=== PATIENT | male | born 2000 | race Two or more races ===

== ENCOUNTER 2019-09-11 04:50 | Emergency (ER) | payer SELFPAY ==
--- NOTE | 2019-09-11 05:39 | EDM.PDOC ---
ED HPI GENERAL MEDICAL PROBLEM - General Chief Complaint: Gastrointestinal Problem Stated Complaint: [facility] Time Seen by Provider: 09/11/19 05:37 - History of Present Illness INITIAL COMMENTS - FREE TEXT/NARRATIVE: 18-year-old male brought in by EMS with a chief complaint of chest pain. Patient has had chest pain on and off for the last several weeks. He developed significant nausea since midday yesterday. He has vomited many times since midnight tonight. Has not vomited prior to this. He did vomit some red material at one time. Patient was brought in by EMS and did not vomit during that time and he has not vomited here in the emergency room. Epigastric Pain Score (Numeric/FACES): 5 - Related Data Allergies Allergy/AdvReac Type Severity Reaction Status Date / Time No Known Allergies Allergy Verified 09/11/19 04:55 Home Meds: Home Meds Lansoprazole [Prevacid] 30 mg PO ASDIRECTED #30 tab.rap. 09/11/19 [Rx] Sucralfate [Carafate] 1 gm PO QIDACANDBED #24 cup 09/11/19 [Rx] Past Medical History - Past Health History Medical/Surgical History: Denies Medical/Surgical History Social & Family History - Tobacco Use Smoking Status *Q: Unknown Ever Smoked ED ROS GENERAL - Review of Systems Review Of Systems: See Below Constitutional: Reports: Chills. Denies: Fever HEENT: Reports: No Symptoms Respiratory: Reports: Other (Chest pains at time) Cardiovascular: Reports: Chest Pain (Sharp at times) Endocrine: Reports: No Symptoms GI/Abdominal: Reports: Abdominal Pain, Nausea, Vomiting. Denies: Black Stool, Bloody Stool : Reports: No Symptoms Skin: Reports: No Symptoms ED EXAM, GI/ABD - Physical Exam Exam: See Below Exam Limited By: No Limitations General Appearance: Alert, Mild Distress (From the discomfort) Head: Atraumatic, Normocephalic Neck: Normal Inspection, Supple, Non-Tender, Full Range of Motion Respiratory/Chest: No Respiratory Distress, Lungs Clear, Normal Breath Sounds Cardiovascular: Regular Rate, Rhythm, No Edema, No Murmur GI/Abdominal Exam: Normal Bowel Sounds, Soft, Other (He has marked epigastric discomfort with palpation this seems to trigger the pain that brought him in no rigidity rebound or guarding noted) Back Exam: Normal Inspection. No: CVA Tenderness (L), CVA Tenderness (R) Course - Vital Signs Last Recorded V/S: Last Vital Signs Temp 36.5 C 09/11/19 04:52 Pulse 90 09/11/19 04:52 Resp 16 09/11/19 04:52 BP 112/70 09/11/19 04:52 Pulse Ox 98 09/11/19 04:52 Orthostatic Blood Pressure [ 110/75 Standing] - Orders/Labs/Meds Orders: Active Orders 24 hr Category Date Time Status EKG Documentation Completion [RC] STAT Care 09/11/19 05:50 Active Labs: Laboratory Tests 09/11/19 09/11/19 Range/Units 06:00 06:00 WBC 19.20 H (4.23-9.07) K/mm3 RBC 5.82 (4.63-6.08) M/mm3 Hgb 16.6 (13.7-17.5) gm/dl Hct 48.8 (40.1-51.0) % MCV 83.8 (79.0-92.2) fl MCH 28.5 (25.7-32.2) pg MCHC 34.0 (32.2-35.5) g/dl RDW Std Deviation 38.6 (35.1-43.9) fL Plt Count 285 (163-337) K/mm3 MPV 9.6 (9.4-12.3) fl Neutrophils % (Manual) 87 H (40-60) % Band Neutrophils % 3 (0-10) % Lymphocytes % (Manual) 5 L (20-40) % Atypical Lymphs % 0 % Monocytes % (Manual) 4 (2-10) % Eosinophils % (Manual) 1 (0.8-7.0) % Basophils % (Manual) 0 L (0.2-1.2) Platelet Estimate Adequate Anisocytosis 1+ slight RBC Morph Comment Not Reportable Sodium 139 (136-145) mEq/L Potassium 4.0 (3.5-5.1) mEq/L Chloride 100 (98-107) mEq/L Carbon Dioxide 26 (21-32) mEq/L Anion Gap 17.0 H (5-15) BUN 22 H (7-18) mg/dL Creatinine 0.9 (0.7-1.3) mg/dL Est Cr Clr Drug Dosing 101.64 mL/min Estimated GFR (MDRD) > 60 (>60) mL/min BUN/Creatinine Ratio 24.4 H (14-18) Glucose 136 H (74-106) mg/dL Calcium 9.1 (8.5-10.1) mg/dL Total Bilirubin 0.6 (0.2-1.0) mg/dL AST 21 (15-37) U/L ALT 33 (16-63) U/L Alkaline Phosphatase 99 (46-116) U/L Total Protein 8.3 H (6.4-8.2) g/dl Albumin 4.3 (3.4-5.0) g/dl Globulin 4.0 gm/dL Albumin/Globulin Ratio 1.1 (1-2) Lipase 69 L (73-393) U/L Meds: Medications Discontinued Medications Generic Name Dose Route Start Last Admin Trade Name Freq PRN Reason Stop Dose Admin Al Hydroxide/Mg Hydroxide 30 0 ml 09/11/19 05:45 09/11/19 05:58 ml/ Lidocaine HCl 15 ml PO 09/11/19 05:46 45 ml ONETIME ONE Administration Lactated Ringer's 1,000 mls @ 999 mls/hr 09/11/19 05:44 09/11/19 05:57 Ringers, Lactated IV 09/11/19 06:44 999 mls/hr .BOLUS ONE Administration Ondansetron HCl 4 mg 09/11/19 05:44 09/11/19 05:57 Zofran IVPUSH 09/11/19 05:45 4 mg ONETIME ONE Administration - Re-Assessments/Exams Free Text/Narrative Re-Assessment/Exam: 09/11/19 07:51 Patient received parenteral IV fluids shortly after arrival after his nausea was controlled he was given a GI cocktail and feels much better at this time. Shortly after taking the GI cocktail he noticed significant improvement Departure - Departure Time of Disposition: 07:51 Disposition: Home, Self-Care 01 Clinical Impression: GERD (gastroesophageal reflux disease) - Discharge Information Prescriptions: Lansoprazole [Prevacid] 30 mg PO ASDIRECTED #30 tab.rap Sucralfate [Carafate] 1 gm PO QIDACANDBED #24 cup Referrals: PCP,None [Primary Care Provider] - Forms: ED Department Discharge Additional Instructions: Return to the emergency room with any questions problems or worsening symptoms. You have been started on 2 medications the first 1 is Carafate you will take this for 6 days take this just before your morning midday and evening meals and at bedtime. You have been started on Prevacid take this daily 60 minutes before your morning meal. Follow-up in the [facility] or here at the hospital clinic early this next week for recheck. Sepsis Event Note - Evaluation Sepsis Screening Result: No Definite Risk - Focused Exam Vital Signs: Vital Signs Temp Pulse Resp BP Pulse Ox 09/11/19 04:52 36.5 C 90 16 112/70 98 Date Exam was Performed: 09/11/19 Time Exam was Performed: 07:50 - My Orders Last 24 Hours: My Active Orders 09/11/19 05:50 EKG Documentation Completion [RC] STAT - Assessment/Plan Last 24 Hours: My Active Orders 09/11/19 05:50 EKG Documentation Completion [RC] STAT
[2019-09-11] MEDS ORDERED: Lactated Ringers 1,000 ML IV ONE (05:44)
[2019-09-11] MEDS ORDERED: Ondansetron 4 MG/2 ML SDV IVPUSH ONE (05:44)
[2019-09-11] MEDS ORDERED: Alum Hydrox/Mag Hydrox/Simeth 30 ML, Lidocaine 2% 15 ML PO ONE ×2 (05:45)
--- NOTE | 2019-09-11 07:16 | CR ---
Chest: Two views of the chest were obtained. Comparison: No prior chest imaging. Heart size and mediastinum are normal. Lungs are clear. Bony structures are unremarkable. Impression: 1. Nothing acute is seen on two-view chest x-ray. Diagnostic code #1 This report was dictated in [place] Standard Time
[2019-09-11] MEDS ORDERED: Pantoprazole 40 MG Tab.CR PO ONE (07:52)
[2019-09-11] MEDS ORDERED: Sucralfate 1 GM Tab PO ONE (07:52)
== END 2019-09-11 08:18 | disposition home or self-care (01) ==
LOC: JD.ED 04:50
DX: K21.9 Gastro-esophageal reflux disease without esophagitis (principal)
CPT/HCPCS: 36415; 71046; 80053; 83690; 85007; 85027; 93005; 96361; 96374; 99285; A9270; J2405; J7120; 99283

== ENCOUNTER 2019-11-27 22:46 | Emergency (ER) | payer SELFPAY ==
[2019-11-28] MEDS ORDERED: Orphenadrine 100 MG Tab.ER PO STA (00:59)
[2019-11-28] MEDS ORDERED: Ibuprofen 600 MG Tab PO ONE (00:59)
--- NOTE | 2019-11-28 01:03 | EDM.PDOC ---
ED HPI GENERAL MEDICAL PROBLEM - General Chief Complaint: Headache Stated Complaint: MIGRAINE Time Seen by Provider: 11/28/19 00:45 Source of Information: Reports: Patient, Significant Other (Girlfriend) History Limitations: Reports: No Limitations - History of Present Illness INITIAL COMMENTS - FREE TEXT/NARRATIVE: Mr. Coleman is a very pleasant 19-year-old man with chronic medical problems and no past surgical history, who now presents to the ED stating that he has been experiencing a headache felt primarily to the back of his head and neck, as well as behind his eyes, coming and going for the past 4 days. It is typically gone when he wakes up, but then develops a couple hours after he gets up. He also reports that he has felt lightheaded when upright for the past few days. He states that he had some nausea and emesis yesterday, 11/27/2019. He denies recent fever, chills, cough, dyspnea, chest pain, palpitations, constipation, diarrhea, abdominal pain, urinary symptoms, recent weight gain or weight loss, recent bloody bowel movements or black bowel movements, recent joint aches, or rashes. The patient states that he took 400 mg of ibuprofen 4 days ago, but nothing since. The patient states that he has a history of relatively frequent headaches since childhood. He states that he had x-rays taken, and that he was prescribed some "pills", however, he states that he has never undergone a neurologic evaluation , and, to his knowledge, he has never had a CT scan or MRI of his head. Here in the ED, the patient is found to be hemodynamically stable, afebrile, saturating 98% on room air. The patient does not have a PCP. He did not receive an influenza vaccine this season. He initially agreed to receive one here today, then changed his mind. Posterior Headache Pain Score (Numeric/FACES): 7 - Related Data Allergies Allergy/AdvReac Type Severity Reaction Status Date / Time No Known Allergies Allergy Verified 09/11/19 04:55 Home Meds: Home Meds Orphenadrine [Norflex] 1 tab PO Q12H PRN #14 tab.er 11/28/19 [Rx] Past Medical History Gastrointestinal History: Reports: GERD (untreated) Social & Family History - Tobacco Use Smoking Status *Q: Never Smoker - Caffeine Use Caffeine Use: Reports: Soda - Alcohol Use Alcohol Use History: Yes Alcohol Use Frequency: Socially - Recreational Drug Use Recreational Drug Use: No - Living Situation & Occupation Living situation: Reports: Single, with Family Occupation: Employed ([employer]) ED ROS GENERAL - Review of Systems Review Of Systems: Comprehensive ROS is negative, except as noted in HPI. Neurological: Reports: Headache - Physical Exam Exam: See Below Exam Limited By: No Limitations General Appearance: Alert, WD/WN, No Apparent Distress Eye Exam: Bilateral Eye: EOMI, Normal Inspection, PERRL Ears: Normal External Exam, Normal Canal, Hearing Grossly Normal, Normal TMs Nose: Normal Inspection, Normal Mucosa, No Blood Throat/Mouth: Normal Inspection, Normal Lips, Normal Teeth, Normal Gums, Normal Oropharynx, Normal Voice, No Airway Compromise Head Exam: Atraumatic, Normocephalic, Scalp Tenderness (posterior, primarily, with minimal tenderness across the top) Neck: Normal Inspection, Supple, Full Range of Motion, Tender Lateral ( reproducible, to palpation of the posterionr musculature). No: Lymphadenopathy (L), Lymphadenopathy (R) Respiratory/Chest: No Respiratory Distress, Lungs Clear, Normal Breath Sounds, No Accessory Muscle Use Cardiovascular: Normal Peripheral Pulses, Regular Rate, Rhythm, No Edema, No Gallop, No JVD, No Murmur, No Rub GI/Abdominal: Normal Bowel Sounds, Soft, Non-Tender, No Organomegaly, No Distention, No Abnormal Bruit, No Mass (Male) Exam: Deferred Rectal (Males) Exam: Deferred Neuro Exam (Abbreviated): Alert, Oriented, CN II-XII Intact, Normal Cognition, No Motor/Sensory Deficits Back Exam: Normal Inspection, Full Range of Motion, NT Extremities: Normal Inspection, Normal Range of Motion, No Pedal Edema, Normal Capillary Refill Psychiatric: Normal Affect Skin Exam: Warm, Dry, Intact, Normal Color, No Rash Course - Vital Signs Last Recorded V/S: Last Vital Signs Temp 36.9 C 11/28/19 01:38 Pulse 73 11/28/19 01:38 Resp 18 11/28/19 01:38 BP 110/57 L 11/28/19 01:38 Pulse Ox 100 11/28/19 01:38 Orthostatic Blood Pressure [ 106/71 Standing] Orthostatic Blood Pressure [ 106/58 Sitting] Orthostatic Blood Pressure [ 108/51 Supine] - Orders/Labs/Meds Orders: Active Orders 24 hr Category Date Time Status Influenza Vaccine Charge [RC] .DISCHARGE Care 11/28/19 00:59 Active Orthostatic Vital Signs [RC] STAT Care 11/28/19 00:59 Active Meds: Medications Discontinued Medications Generic Name Dose Route Start Last Admin Trade Name Freq PRN Reason Stop Dose Admin Ibuprofen 600 mg 11/28/19 00:59 11/28/19 01:11 Motrin PO 11/28/19 01:00 600 mg ONETIME ONE Administration Influenza Virus Vaccine 1 each 11/28/19 00:59 Pharmacy To Dose - Influenza Vaccine IM 11/28/19 01:00 ONETIME ONE Influenza Virus Vaccine 60 mcg 11/28/19 01:15 11/28/19 01:31 Fluzone Quad Syringe IM 11/28/19 01:16 Not Given .ONCE ONE Orphenadrine Citrate 100 mg 11/28/19 00:59 11/28/19 01:11 Norflex PO 11/28/19 01:00 100 mg ONETIME STA Administration - Re-Assessments/Exams Free Text/Narrative Re-Assessment/Exam: 11/28/19 01:00 The patient's history and physical examination are most consistent with a tension type headache, not a migraine. As such, I will treat him with Norflex and ibuprofen. Because the patient said that he has felt lightheaded when upright for the past few days, we will check orthostatics. 11/28/19 01:25 The patient is not orthostatic. I will discharge him home. Departure - Departure Time of Disposition: 01:25 Disposition: Home, Self-Care 01 Condition: Good Clinical Impression: Tension type headache - Discharge Information *PRESCRIPTION DRUG MONITORING PROGRAM REVIEWED*: Not Applicable *COPY OF PRESCRIPTION DRUG MONITORING REPORT IN PATIENT MELVIN: Not Applicable Prescriptions: Orphenadrine [Norflex] 1 tab PO Q12H PRN #14 tab.er PRN Reason: Muscle Spasm Instructions: Dehydration, Elderly, [id number] Referrals: PCP,None [Primary Care Provider] - Forms: ED Department Discharge Additional Instructions: You were seen in the emergency room for 4 days of a headache felt that the back of your head and neck, along with lightheadedness, nausea, and vomiting. Work-up in the ER included positional blood pressure checks, which returned normal. You are not dehydrated. Based on your history and physical exam, you are suffering from a tension-type headache, not a migraine. You have been started on the muscle relaxant Norflex, and a prescription for Norflex has been sent to the [facility] located in the [place] store. Take 1 tablet of Norflex every 12 hours, starting this afternoon, 11/28/2019, as prescribed. Norflex works well with ibuprofen. Take 3 tablets (600 mg) of [id number] ibuprofen every 8 hours, with food, as needed for discomfort. Make sure that you stay well-hydrated. Gatorade or Powerade are best. If any other problems, please do not hesitate to return to the ER. Sepsis Event Note - Evaluation Sepsis Screening Result: No Definite Risk - Focused Exam Date Exam was Performed: 11/28/19 Time Exam was Performed: 23:28 - My Orders Last 24 Hours: My Active Orders 11/28/19 00:59 Influenza Vaccine Charge [RC] .DISCHARGE Orthostatic Vital Signs [RC] STAT - Assessment/Plan Last 24 Hours: My Active Orders 11/28/19 00:59 Influenza Vaccine Charge [RC] .DISCHARGE Orthostatic Vital Signs [RC] STAT
[2019-11-28] MEDS ORDERED: FLU Vacc QS2019-20(6MOS+)/PF 60 MCG/0.5 ML SYRINGE IM ONE (01:15)
== END 2019-11-28 01:38 | disposition home or self-care (01) ==
LOC: JD.ED 22:46
DX: G44.209 Tension-type headache, unspecified, not intractable (principal)
CPT/HCPCS: 99283; A9270; G0008